=== PATIENT | male | born 1975 | race African-American/Black ===

== ENCOUNTER 2020-07-05 | Emergency (ER) | payer MEDICAID ==
[~2020-07-05] VITALS: Ht 177.8 cm; Wt 81.6 kg
--- NOTE | 2020-07-05 00:05 | NUR ---
bibself c/o left sided chest pain radiating to left arm x 3 days. current chest pain is 3/10 sharp that radiates to left arm,pt is aa/ox 4 respiration even and unlabored, v/s checked and recorded, pt is ambulatory with steady gait
--- NOTE | 2020-07-05 00:10 | NUR ---
lab at bed side, blood is drawn
--- NOTE | 2020-07-05 00:20 | NUR ---
CXR AT BED SIDE
[2020-07-05 00:27] LABS: BASOPHILS % (AUTO) 0.7 % (0.0-2.0); EOSINOPHILS % (AUTO) 2.1 % (0.0-6.0); HEMATOCRIT 39 % (39-51); HEMOGLOBIN 13.3 g/dL (13.5-17.5); LYMPHOCYTES # (AUTO) 2.1 /CMM (0.8-4.8); LYMPHOCYTES % (AUTO) 30.6 % (20.0-44.0); MEAN CORPUSCULAR HGB CONC 35 g/dl (31.0-36.0); MEAN CORPUSCULAR VOLUME 97 fL (80-96); MONOCYTES # (AUTO) 0.8 /CMM (0.1-1.30); MONOCYTES % (AUTO) 11.3 % (2.0-12.0); NEUTROPHILS # (AUTO) 3.7 /CMM (1.8-8.9); NEUTROPHILS % (AUTO) 55.3 % (43.0-81.0); PLATELET COUNT (AUTO) 182 /CMM (150-450); RED BLOOD CELL COUNT(AUTO) 3.99 MIL/uL (4.5-6.0); WHITE BLOOD COUNT (AUTO) 6.7 K/uL (4.3-11.0)
[2020-07-05 00:36] LABS: CARBON DIOXIDE 23 mmol/L (21-32); CHLORIDE 104 mmol/L (98-107); CREATININE 1.2 mg/dL (0.6-1.3); GLUCOSE 92 mg/dL (74-106); POTASSIUM 3.9 mmol/L (3.5-5.1); SODIUM SERUM 137 mmol/L (136-145); UREA NITROGEN, BLOOD 22 mg/dL (7-18)
[2020-07-05 01:38] VITALS: BP 125/65
--- NOTE | 2020-07-05 01:38 | NUR ---
Patient discharged to home in stable condition. Written and verbal after care instructions given. Patient verbalizes understanding of instruction.IV removed. Catheter intact and site benign. Pressure and 4x4 applied to site. No bleeding noted. Mr Galan is ambulatory with a steady gait walking without assistance
== END 2020-07-05 01:40 | disposition home or self-care (01) ==
LOC: ER 00:03
DX: R07.89 Other chest pain (principal); Z60.2 Problems related to living alone
CPT/HCPCS: 36415; 71045-TC; 80048-TC; 84484-TC; 85025-TC

== ENCOUNTER 2020-07-21 01:24 | Emergency (ER) | payer MEDICAID ==
[~2020-07-21] VITALS: Ht 177.8 cm; Wt 83.9 kg
[2020-07-21 01:39] VITALS: BP 105/59
[2020-07-21] MEDS ORDERED: IBUP-1957 PO (01:57)
== END 2020-07-21 02:10 | disposition home or self-care (01) ==
LOC: ER 01:28
DX: M62.830 Muscle spasm of back (principal); M54.5 Low back pain; M25.512 Pain in left shoulder; Z98.890 Other specified postprocedural states; V49.49XA Driver injured in collision with other motor vehicles in traffic accident, initial encounter; Y93.89 Activity, other specified; Y92.89 Other specified places as the place of occurrence of the external cause; Y99.8 Other external cause status

== ENCOUNTER 2023-03-12 09:11 | Emergency (ER) | payer MEDICAID, OTHER ==
[~2023-03-12] VITALS: Ht 177.8 cm; Wt 79.4 kg
[~2023-03-12 09:11] MED LIST: IBUP-1957 PO
[2023-03-12] MEDS ORDERED: BACI/NEOM/POLY B OINT PKT 1 UDPKT PACKET ONE (09:52)
[2023-03-12] MEDS ORDERED: KETOROLAC TROMETHAMINE 15 MG/ML VIAL ONE (09:52)
[2023-03-12] MEDS ORDERED: TDAP [DIPH/PERTUSSIS/TET] 0.5 ML VIAL IM ONE ×2 (09:53→10:00)
[2023-03-12] MEDS ORDERED: IBUP-1955 PO (09:59)
[2023-03-12] MEDS ORDERED: AMOX-430 PO (09:59)
[2023-03-12] MEDS ORDERED: BACI/NEOM/POLY B OINT PKT 1 UDPKT PACKET TP ONE (10:00)
[2023-03-12] MEDS ORDERED: KETOROLAC TROMETHAMINE 15 MG/ML VIAL IM ONE (10:00)
[2023-03-12 10:24] VITALS: BP 117/57; TEMP 98.3; O2SAT 99
== END 2023-03-12 10:26 | disposition home or self-care (01) ==
LOC: ER 09:35
DX: S61.356A Open bite of right little finger with damage to nail, initial encounter (principal); S61.452A Open bite of left hand, initial encounter; S61.451A Open bite of right hand, initial encounter; S51.852A Open bite of left forearm, initial encounter; S51.851A Open bite of right forearm, initial encounter; Z91.018 Allergy to other foods; W54.0XXA Bitten by dog, initial encounter; Y93.89 Activity, other specified; Y92.89 Other specified places as the place of occurrence of the external cause; Y99.8 Other external cause status
CPT/HCPCS: 99284; 96372; 90471; 90715; J1885

== ENCOUNTER 2023-06-06 03:17 | Emergency (ER) | payer MEDICAID, OTHER ==
[~2023-06-06] VITALS: Ht 177.8 cm; Wt 81.6 kg
[~2023-06-06 03:17] MED LIST changes: +AMOX-430 PO; +IBUP-1955 PO
[2023-06-06] MEDS ORDERED: LIDOCAINE 2% 20 ML MDV ONE (04:57)
[2023-06-06] MEDS: TDAP [DIPH/PERTUSSIS/TET] 0.5 ML VIAL IM ONE (05:04)
[2023-06-06] MEDS ORDERED: KETO10TA2 PO (05:24)
[2023-06-06] MEDS ORDERED: HYDROCODONE/APAP 5/325MG TABLET ONE (05:32)
[2023-06-06] MEDS: LIDOCAINE /MPF 1% VIAL 5 ML VIAL TP ONE (05:33)
[2023-06-06] MEDS: HYDROCODONE/APAP 5/325MG TABLET PO ONE (05:37)
[2023-06-06 05:45] VITALS: BP 133/87; TEMP 98.1; O2SAT 98
== END 2023-06-06 05:40 | disposition home or self-care (01) ==
LOC: ER 03:19
DX: S61.412A Laceration without foreign body of left hand, initial encounter (principal); Z91.018 Allergy to other foods; W26.0XXA Contact with knife, initial encounter; Y93.89 Activity, other specified; Y92.89 Other specified places as the place of occurrence of the external cause; Y99.8 Other external cause status
CPT/HCPCS: 12002; 99283; J3490